=== PATIENT | female | born 1975 | race Caucasian/White ===

== ENCOUNTER 2020-11-09 13:05 | Emergency (ER) | payer BC, OTHER ==
[~2020-11-09] VITALS: Ht 175.3 cm; Wt 154.5 kg
[2020-11-09 13:44] LABS: HCG UR SG 1.035 (1.003-1.030)
--- NOTE | 2020-11-09 13:46 | NUR ---
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
[2020-11-09 13:52] LABS: MICROSCOPIC INDICATED
--- NOTE | 2020-11-09 13:53 | NUR ---
[facility]PA AT BEDSIDE.
[2020-11-09] MEDS ORDERED: MAALOX/HYOSCYAMINE/LIDOCAINE 45 ML BTL PO ONE (14:00)
[2020-11-09] MEDS ORDERED: MAALOX/HYOSCYAMINE/LIDOCAINE 45 ML BTL ONE (14:09)
--- NOTE | 2020-11-09 14:11 | NUR ---
[facility]O RUQ PAIN X3 DAYS. PER PATIENT SIMILAR PAIN 4 WEEKS AGO THAT RESOLVED. PATIENT SEEN AT URGENT CARE AND REFERRED TO ED FOR POSSIBLE GALLSTONES. PATIENT DENIES N/V/D, NO FEVERS. HX OF GALLBLADDER ISSUES. NADN, CONNECTED TO MONITOR, VSS, CALL LIGHT WITHIN REACH.
[2020-11-09 14:31] LABS: BASOPHILS % (AUTO) 1 % (0-1); EOSINOPHILS % (AUTO) 1 % (1-7); LYMPHOCYTES % (AUTO) 16 % (22-44); MEAN CORPUSCULAR HEMOGLOBIN 25.7 pg (27.0-34.8); MEAN CORPUSCULAR HGB CONC 32.4 g/dL (32.4-35.8); MEAN PLATELET VOLUME 9.5 fL (7.4-10.4); MONOCYTES % (AUTO) 5 % (2-9); NEUTROPHILS % (AUTO) 78 % (42-75); PLATELET COUNT 272 x10^3/uL (130-400); RED BLOOD COUNT 4.54 x10^6/uL (3.82-5.3); RED CELL DISTRIBUTION WIDTH 15.9 % (9.6-15.2)
[2020-11-09 14:37] LABS: ALANINE AMINOTRANSFERASE 21 U/L (12-78); ANION GAP 4 mmol/L (5-15); CALCIUM 8.9 mg/dL (8.5-10.1); CHLORIDE 105 mmol/L (98-107); CREATININE 0.77 mg/dL (0.55-1.02)
[2020-11-09 14:42] LABS: ALKALINE PHOSPHATASE 81 U/L (45-117); BILIRUBIN,TOTAL 0.3 mg/dL (0.2-1.0); TOTAL PROTEIN 7.1 g/dL (6.4-8.2)
--- NOTE | 2020-11-09 15:08 | NUR ---
PATIENT TO IMAGING.
--- NOTE | 2020-11-09 15:29 | NUR ---
PATIENT BACK IN ROOM, RESTING IN [facility], CONNECTED TO MONITOR, VSS, CALL LIGHT WITHIN REACH. PATIENT UP FOR RECHECK.
[2020-11-09 15:33] VITALS: BP 125/64
--- NOTE | 2020-11-09 15:47 | NUR ---
ERPA AT BEDSIDE TO DISCUSS POC.
[2020-11-09] MEDS ORDERED: SODIUM CHLORIDE FLUSH 10ML SYR IVF ONE (16:00)
--- NOTE | 2020-11-09 16:06 | NUR ---
20 GAUGE IV STARTED LEFT FA, WAITING FOR CT SCAN.
--- NOTE | 2020-11-09 16:10 | NUR ---
PATIENT TO IMAGING.
[2020-11-09] MEDS ORDERED: OMNIPAQUE 350 MG/ML, 150 ML BOTTLE ONE (16:28)
--- NOTE | 2020-11-09 17:45 | NUR ---
IV removed with tip intact. Patient given discharge instructions and they have confirmed that they understand the instructions. Patient ambulatory with steady gait. NAD, all questions answered appropriately, denies additional needs at this time. No personal belongings left in room after discharge.
== END 2020-11-09 17:46 | disposition home or self-care (01) ==
LOC: ED 13:10
DX: N30.00 Acute cystitis without hematuria (principal); K82.9 Disease of gallbladder, unspecified; R19.00 Intra-abdominal and pelvic swelling, mass and lump, unspecified site; K21.9 Gastro-esophageal reflux disease without esophagitis
CPT/HCPCS: 36415; 74177; 76700; 80053; 81001; 81025; 82378; 83690; 84703; 85025; 86304; 87086; 99285; Q9967; 87147